=== PATIENT | male | born 1935 | race Caucasian/White ===

== ENCOUNTER 2018-05-01 14:37 | Inpatient (IN) | payer MEDICARE, BC ==
[~2018-05-01] VITALS: Ht 175.3 cm; Wt 63.2 kg
[2018-05-01] MEDS: PLEASE ENTER ALLERGIES MC SCH ×2 (15:00→23:00)
[2018-05-01] MEDS ORDERED: SODIUM CHLORIDE FLUSH 10ML SYR IVF ONE (15:00)
[2018-05-01 15:20] LABS: MEAN CORPUSCULAR HEMOGLOBIN 38.4 pg (27.5-34.5); MEAN CORPUSCULAR HGB CONC 32.2 g/dL (33.2-36.2); MEAN CORPUSCULAR VOLUME 119.4 fL (81-97); MEAN PLATELET VOLUME 7.8 fL (7.4-10.4); PLATELET COUNT 520 x10^3/uL (130-400); RED BLOOD COUNT 2.42 x10^6/uL (4.38-5.82); RED CELL DISTRIBUTION WIDTH 16.2 % (9.4-14.8)
[2018-05-01 15:28] LABS: ALANINE AMINOTRANSFERASE 27 U/L (12-78); ALBUMIN 3.6 g/dL (3.4-5.0); ANION GAP 9 mmol/L (5-15); CALCIUM 9.1 mg/dL (8.5-10.1); CHLORIDE 111 mmol/L (98-107); CREATININE 2.02 mg/dL (0.7-1.3)
[2018-05-01 15:50] LABS: INTERNATIONAL NORMALIZED RATIO 1.17 (0.93-1.1); PROTHROMBIN TIME 12.3 Seconds (9.6-11.5)
[2018-05-01 15:53] LABS: BASOPHILS % (AUTO) 0 % (0-1); EOSINOPHILS # (AUTO) 0.01 x10^3/uL (0-0.4); EOSINOPHILS % (AUTO) 0 % (1-7); LYMPHOCYTES # (AUTO) 0.83 x10^3/uL (1-3.4); LYMPHOCYTES % (AUTO) 10 % (22-44); MD MORPH REVIEW ONLY; MONOCYTES # (AUTO) 0.29 x10^3/uL (0.2-0.8); MONOCYTES % (AUTO) 3 % (2-9); NEUTROPHILS % (AUTO) 87 % (42-75)
[2018-05-01 15:54] LABS: <PLATELET ESTIMATE> INCREASED; <PLT MORPHOLOGY> NORMAL PLT MORPH; ANISOCYTOSIS 1+; POLYCHROMASIA 1+
[2018-05-01 15:55] LABS: ALKALINE PHOSPHATASE 115 U/L (45-117); BILIRUBIN,TOTAL 1.6 mg/dL (0.2-1.0); TOTAL PROTEIN 8.1 g/dL (6.4-8.2)
[2018-05-01] MEDS ORDERED: LABETALOL 5MG/ML, 20ML IVPush PRN (17:30)
[2018-05-01] MEDS ORDERED: POLYETHYLENE GLYCOL 17 GM PACKET PO PRN (17:30)
[2018-05-01] MEDS ORDERED: ACETAMINOPHEN 325 MG TABLET PO PRN (17:30)
[2018-05-01] MEDS ORDERED: DOCUSATE 100 MG CAPSULE PO PRN (17:30)
[2018-05-01] MEDS ORDERED: BISACODYL 10 MG SUPP PR PRN (17:30)
[2018-05-01] MEDS ORDERED: BACLOFEN 10 MG TABLET PO PRN (17:30)
[2018-05-01 17:47] LABS: FREE T4 (FREE THYROXINE) 1.27 ng/dL (0.76-1.46); TROPONIN I 0.252 ng/mL (0.000-0.045)
[2018-05-01 18:03] LABS: HEMOGLOBIN A1C 4.5 % (4.2-6.3)
[2018-05-01 20:04] VITALS: BP 148/73
[2018-05-01] MEDS: ATORVASTATIN 40 MG TABLET PO SCH (20:05)
[2018-05-01] MEDS: HEPARIN 5,000 UNITS/ML, 1ML SQ SCH (20:28)
[2018-05-01] MEDS: SODIUM CHLORIDE 0.9% 1,000 ML IV SCH (20:28)
[2018-05-01] MEDS ORDERED: FOLI-17 PO (20:59)
[2018-05-01 21:06] LABS: MICROSCOPIC AUTO
[2018-05-01 21:13] LABS: AMPHETAMINE SCREEN, URINE Negative (Negative); BARBITURATE SCREEN, URINE Negative (Negative); BENZODIAZEPINE SCREEN, URINE Negative (Negative); CANNABINOID SCREEN, URINE Negative (Negative); CHLORIDE,URINE RANDOM 156 mmol/L; COCAINE SCREEN, URINE Negative (Negative); METHADONE SCREEN, URINE Negative (Negative); OPIATE SCREEN, URINE Negative (Negative); POTASSIUM,URINE RANDOM 72 mmol/L; SODIUM,URINE RANDOM 127 mmol/L
[2018-05-01 21:14] LABS: CULTURE INDICATED? NO
[2018-05-02 00:47] VITALS: BP 128/67
[2018-05-02] MEDS ORDERED: HYDR500C PO (00:55)
[2018-05-02] MEDS ORDERED: ASPI-430 PO (00:55)
[2018-05-02] MEDS: SODIUM CHLORIDE 0.9% 1,000 ML IV SCH ×3 (04:11→22:04)
[2018-05-02] MEDS: HEPARIN 5,000 UNITS/ML, 1ML SQ SCH ×3 (04:11→19:31)
[2018-05-02 06:09] LABS: CHLORIDE 116 mmol/L (98-107)
[2018-05-02 06:11] LABS: MEAN CORPUSCULAR HEMOGLOBIN 39.3 pg (27.5-34.5); MEAN CORPUSCULAR HGB CONC 32.9 g/dL (33.2-36.2); MEAN CORPUSCULAR VOLUME 119.5 fL (81-97); MEAN PLATELET VOLUME 8.2 fL (7.4-10.4); PLATELET COUNT 386 x10^3/uL (130-400); RED BLOOD COUNT 2.18 x10^6/uL (4.38-5.82); RED CELL DISTRIBUTION WIDTH 16.6 % (9.4-14.8)
[2018-05-02 06:19] LABS: ALANINE AMINOTRANSFERASE 22 U/L (12-78); ALKALINE PHOSPHATASE 101 U/L (45-117); ANION GAP 9 mmol/L (5-15); BILIRUBIN,TOTAL 1.6 mg/dL (0.2-1.0); CALCIUM 8.5 mg/dL (8.5-10.1); CHOL/HDL RATIO 2.3; CHOLESTEROL, TOTAL 96 mg/dL (140-239); CREATININE 1.65 mg/dL (0.7-1.3); HDL CHOL % 44 % (26-37); HDL CHOLESTEROL (DIRECT) 42 mg/dL (40-60); LDL CHOLESTEROL,CALCULATED 40 mg/dL (54-169); TRIGLYCERIDES 70 mg/dL (50-200); VLDL CHOLESTEROL 14 mg/dL (0-25)
[2018-05-02 06:50] LABS: BASOPHILS # (AUTO) 1.56 x10^3/uL (0-0.1); BASOPHILS % (AUTO) 18 % (0-1); EOSINOPHILS # (AUTO) 0.06 x10^3/uL (0-0.4); EOSINOPHILS % (AUTO) 1 % (1-7); LYMPHOCYTES # (AUTO) 1.05 x10^3/uL (1-3.4); LYMPHOCYTES % (AUTO) 12 % (22-44); MD SCAN; MONOCYTES # (AUTO) 0.29 x10^3/uL (0.2-0.8); MONOCYTES % (AUTO) 3 % (2-9); NEUTROPHILS # (AUTO) 5.52 x10^3/uL (1.8-6.8); NEUTROPHILS % (AUTO) 65 % (42-75)
[2018-05-02 07:26] VITALS: BP 132/71
[2018-05-02] MEDS ORDERED: ASPIRIN 81 MG TABLET CHEW PO/NG SCH (09:00)
[2018-05-02] MEDS: THIAMINE 100MG TABLET PO SCH (09:00)
[2018-05-02 09:39] LABS: TROPONIN I 0.372 ng/mL (0.000-0.045)
[2018-05-02 12:37] VITALS: BP 129/53
--- NOTE | 2018-05-02 14:35 | NUR ---
TRANSPORTATION AGENT RECOMMEND: NPO with short term means of nutrition and hydration -Aggressive oral care -single ice chips ok Addendum: 05/02/18 at 1436 by JASON CONLEY Amended: Links added.
[2018-05-02] MEDS: ATORVASTATIN 40 MG TABLET PO SCH (19:31)
[2018-05-02 20:00] VITALS: BP 140/68
[2018-05-03 01:37] VITALS: BP 134/76
[2018-05-03] MEDS: HEPARIN 5,000 UNITS/ML, 1ML SQ SCH ×3 (03:53→20:08)
[2018-05-03] MEDS: SODIUM CHLORIDE 0.9% 1,000 ML IV SCH ×3 (05:47→22:20)
[2018-05-03 06:14] LABS: MEAN CORPUSCULAR HGB CONC 33.3 g/dL (33.2-36.2); MEAN CORPUSCULAR VOLUME 120.2 fL (81-97); MEAN PLATELET VOLUME 8.6 fL (7.4-10.4); PLATELET COUNT 367 x10^3/uL (130-400); RED BLOOD COUNT 2.15 x10^6/uL (4.38-5.82); RED CELL DISTRIBUTION WIDTH 16.3 % (9.4-14.8)
[2018-05-03 06:18] LABS: ALANINE AMINOTRANSFERASE 22 U/L (12-78); ANION GAP 9 mmol/L (5-15); CALCIUM 8.3 mg/dL (8.5-10.1); CHLORIDE 119 mmol/L (98-107); CREATININE 1.55 mg/dL (0.7-1.3)
[2018-05-03 06:20] LABS: ALKALINE PHOSPHATASE 100 U/L (45-117); BILIRUBIN,TOTAL 1.8 mg/dL (0.2-1.0); TOTAL PROTEIN 7.4 g/dL (6.4-8.2)
[2018-05-03 06:45] LABS: BASOPHILS # (AUTO) 0.01 x10^3/uL (0-0.1); BASOPHILS % (AUTO) 0 % (0-1); EOSINOPHILS # (AUTO) 0.01 x10^3/uL (0-0.4); EOSINOPHILS % (AUTO) 0 % (1-7); LYMPHOCYTES # (AUTO) 0.98 x10^3/uL (1-3.4); LYMPHOCYTES % (AUTO) 12 % (22-44); MD SCAN; MONOCYTES # (AUTO) 0.25 x10^3/uL (0.2-0.8); MONOCYTES % (AUTO) 3 % (2-9); NEUTROPHILS # (AUTO) 6.77 x10^3/uL (1.8-6.8); NEUTROPHILS % (AUTO) 84 % (42-75)
[2018-05-03 07:55] VITALS: BP 138/79
[2018-05-03] MEDS: THIAMINE 100MG TABLET PO SCH (09:00)
[2018-05-03] MEDS: ASPIRIN 300 MG SUPP PR SCH (09:17)
--- NOTE | 2018-05-03 09:37 | NUR ---
TF Recommendations If Needed: Jevity 1.2 full goal 60 ml/hr
[2018-05-03 13:17] VITALS: BP 139/83
[2018-05-03 17:15] VITALS: BP 144/66
[2018-05-03 18:30] VITALS: BP 158/76
[2018-05-03 18:40] LABS: TROPONIN I 0.174 ng/mL (0.000-0.045)
[2018-05-03] MEDS: ATORVASTATIN 40 MG TABLET PO SCH (20:03)
[2018-05-04 01:55] VITALS: BP 158/76
[2018-05-04] MEDS: HEPARIN 5,000 UNITS/ML, 1ML SQ SCH ×3 (05:11→21:09)
[2018-05-04] MEDS: SODIUM CHLORIDE 0.9% 1,000 ML IV SCH (05:11)
[2018-05-04 06:07] LABS: MEAN CORPUSCULAR HGB CONC 32.7 g/dL (33.2-36.2); MEAN CORPUSCULAR VOLUME 119.5 fL (81-97); MEAN PLATELET VOLUME 8.2 fL (7.4-10.4); PLATELET COUNT 376 x10^3/uL (130-400); RED BLOOD COUNT 2.18 x10^6/uL (4.38-5.82); RED CELL DISTRIBUTION WIDTH 16.6 % (9.4-14.8)
[2018-05-04 06:14] LABS: ALANINE AMINOTRANSFERASE 26 U/L (12-78); ALBUMIN 2.8 g/dL (3.4-5.0); ANION GAP 8 mmol/L (5-15); BILIRUBIN, DIRECT 0.5 mg/dL (0.1-0.2); CALCIUM 7.8 mg/dL (8.5-10.1); CHLORIDE 122 mmol/L (98-107)
[2018-05-04 06:17] LABS: ALKALINE PHOSPHATASE 93 U/L (45-117); BILIRUBIN,INDIRECT 1.2 mg/dL (0.0-2.0); BILIRUBIN,TOTAL 1.7 mg/dL (0.2-1.0); CREATININE 1.48 mg/dL (0.7-1.3); TOTAL PROTEIN 7.3 g/dL (6.4-8.2)
[2018-05-04 06:46] LABS: BASOPHILS # (AUTO) 0.03 x10^3/uL (0-0.1); BASOPHILS % (AUTO) 0 % (0-1); EOSINOPHILS # (AUTO) 0.01 x10^3/uL (0-0.4); EOSINOPHILS % (AUTO) 0 % (1-7); LYMPHOCYTES # (AUTO) 0.85 x10^3/uL (1-3.4); LYMPHOCYTES % (AUTO) 10 % (22-44); MD SCAN; MONOCYTES # (AUTO) 0.33 x10^3/uL (0.2-0.8); MONOCYTES % (AUTO) 4 % (2-9); NEUTROPHILS # (AUTO) 7.14 x10^3/uL (1.8-6.8); NEUTROPHILS % (AUTO) 86 % (42-75)
[2018-05-04 07:19] VITALS: BP 155/70
[2018-05-04] MEDS: THIAMINE 100MG TABLET PO SCH (07:48)
[2018-05-04] MEDS: ASPIRIN 300 MG SUPP PR SCH (09:16)
[2018-05-04] MEDS ORDERED: D5%-0.45NACL+KCL 20MEQ 1,000 ML IV SCH (12:00)
--- NOTE | 2018-05-04 12:46 | NUR ---
REC: NPO with NGT except ice chips with supervision Addendum: 05/04/18 at 1246 by July CONLEY Amended: Links added.
[2018-05-04 13:27] VITALS: BP 152/68
[2018-05-04] MEDS ORDERED: PVN PER PHARMACY MC PRN (16:30)
[2018-05-04] MEDS ORDERED: DEXTROSE 10% 500 ML IV PRN (17:00)
[2018-05-04] MEDS ORDERED: FILTER, DISP 1.2 MICRON FOR TPN/PVN IV PRN (17:00)
[2018-05-04] MEDS ORDERED: DEXTROSE 50%, 50ML SYRINGE IVPush PRN (17:00)
[2018-05-04] MEDS ORDERED: AMINO ACID 10% 750 ML, DEXTROSE 70% 350 ML, FAT EMUL/SMOF TPN 200 ML, STERILE WATER 1,0... IV SCH (17:00)
[2018-05-04 20:11] VITALS: BP 146/70
[2018-05-04] MEDS: ATORVASTATIN 40 MG TABLET PO SCH (21:09)
[2018-05-05] MEDS: INSULIN REGULAR MEDIUM DOSE Q6H X 48HRS SQ-INSULIN SCH ×3 (00:30→14:05)
[2018-05-05 01:44] VITALS: BP 148/76
[2018-05-05] MEDS: HEPARIN 5,000 UNITS/ML, 1ML SQ SCH ×3 (04:33→20:33)
[2018-05-05 05:23] LABS: MEAN CORPUSCULAR HEMOGLOBIN 38.4 pg (27.5-34.5); MEAN CORPUSCULAR VOLUME 119.9 fL (81-97); MEAN PLATELET VOLUME 9.2 fL (7.4-10.4); PLATELET COUNT 368 x10^3/uL (130-400); RED BLOOD COUNT 2.19 x10^6/uL (4.38-5.82); RED CELL DISTRIBUTION WIDTH 16.9 % (9.4-14.8)
[2018-05-05 05:31] LABS: CHLORIDE 122 mmol/L (98-107)
[2018-05-05 05:41] LABS: ALANINE AMINOTRANSFERASE 24 U/L (12-78); ALBUMIN 2.7 g/dL (3.4-5.0); ALKALINE PHOSPHATASE 88 U/L (45-117); ANION GAP 6 mmol/L (5-15); BILIRUBIN,TOTAL 1.2 mg/dL (0.2-1.0); CALCIUM 8.1 mg/dL (8.5-10.1); CREATININE 1.45 mg/dL (0.7-1.3); PREALBUMIN 7.1 mg/dL (20.0-40.0); TOTAL PROTEIN 7.5 g/dL (6.4-8.2); TRIGLYCERIDES 92 mg/dL (50-200)
[2018-05-05 05:59] LABS: BASOPHILS # (AUTO) 0.02 x10^3/uL (0-0.1); BASOPHILS % (AUTO) 0 % (0-1); EOSINOPHILS # (AUTO) 0.06 x10^3/uL (0-0.4); EOSINOPHILS % (AUTO) 1 % (1-7); LYMPHOCYTES # (AUTO) 0.61 x10^3/uL (1-3.4); LYMPHOCYTES % (AUTO) 8 % (22-44); MD SCAN; MONOCYTES # (AUTO) 0.29 x10^3/uL (0.2-0.8); MONOCYTES % (AUTO) 4 % (2-9); NEUTROPHILS # (AUTO) 6.82 x10^3/uL (1.8-6.8); NEUTROPHILS % (AUTO) 88 % (42-75)
[2018-05-05] MEDS ORDERED: D5%-0.45% NACL 1,000 ML IV SCH (07:00)
[2018-05-05] MEDS: THIAMINE 100MG TABLET PO SCH (07:28)
[2018-05-05 08:28] VITALS: BP 145/78
[2018-05-05] MEDS: ASPIRIN 300 MG SUPP PR SCH (08:47)
[2018-05-05 14:49] VITALS: BP 153/77
[2018-05-05] MEDS ORDERED: [UNRECOGNIZED DRUG - OTHER] IV SCH (17:00)
[2018-05-05] MEDS ORDERED: FILTER, DISP 1.2 MICRON FOR TPN/PVN IV PRN (17:00)
[2018-05-05] MEDS ORDERED: DEXTROSE 70% IV SCH (17:00)
[2018-05-05] MEDS ORDERED: FAT EMUL IV SCH (17:00)
[2018-05-05] MEDS ORDERED: AMINO ACID 10% IV SCH (17:00)
[2018-05-05] MEDS ORDERED: SMOF TPN IV SCH (17:00)
[2018-05-05] MEDS ORDERED: DEXTROSE 5% 1,000 ML IV SCH (18:00)
[2018-05-05] MEDS ORDERED: FUROSEMIDE 40 MG/4 ML IV ONE (18:00)
[2018-05-05 18:13] LABS: ALANINE AMINOTRANSFERASE 33 U/L (12-78); ALBUMIN 2.8 g/dL (3.4-5.0); ANION GAP 7 mmol/L (5-15); CALCIUM 8.3 mg/dL (8.5-10.1); CHLORIDE 119 mmol/L (98-107); CREATININE 1.45 mg/dL (0.7-1.3)
[2018-05-05 18:17] LABS: MD YES; MEAN CORPUSCULAR HEMOGLOBIN 39.2 pg (27.5-34.5); MEAN CORPUSCULAR VOLUME 118.8 fL (81-97); PLATELET COUNT 407 x10^3/uL (130-400); RED BLOOD COUNT 2.22 x10^6/uL (4.38-5.82); RED CELL DISTRIBUTION WIDTH 16.6 % (9.4-14.8)
[2018-05-05 18:18] LABS: ALKALINE PHOSPHATASE 100 U/L (45-117); BILIRUBIN,TOTAL 1.4 mg/dL (0.2-1.0); TOTAL PROTEIN 7.9 g/dL (6.4-8.2); TROPONIN I 0.162 ng/mL (0.000-0.045)
[2018-05-05 18:39] LABS: LYMPHS% (MANUAL) 6 % (22-44); SEGS% (MANUAL) 94 % (42-75)
[2018-05-05 18:40] LABS: <PLATELET ESTIMATE> ADEQUATE; <PLT MORPHOLOGY> NORMAL PLT MORPH; ANISOCYTOSIS 1+
[2018-05-05] MEDS ORDERED: PHARMACOKINETIC MONITORING MC PRN (19:00)
[2018-05-05] MEDS ORDERED: PHARMACOKINETIC CONSULTATION MC ONE (19:00)
[2018-05-05] MEDS ORDERED: VANCOMYCIN PER PHARMACY MC PRN (19:00)
[2018-05-05] MEDS: VANCOMYCIN 1,200 MG in SODIUM CHLORIDE 0.9% 250 ML IV SCH (19:38)
[2018-05-05 20:27] VITALS: BP 154/81
[2018-05-05] MEDS: ATORVASTATIN 40 MG TABLET PO SCH (20:34)
[2018-05-05 21:15] LABS: ANION GAP 6 mmol/L (5-15); CHLORIDE 119 mmol/L (98-107); CREATININE 1.34 mg/dL (0.7-1.3)
[2018-05-05] MEDS: PIPERACILLIN/TAZO/PMX 3.375GM 50 ML IV SCH (22:14)
[2018-05-06 00:01] LABS: TROPONIN I 0.259 ng/mL (0.000-0.045)
[2018-05-06 00:54] VITALS: BP 133/74
[2018-05-06] MEDS: HEPARIN 5,000 UNITS/ML, 1ML SQ SCH ×3 (04:19→20:02)
[2018-05-06] MEDS: PIPERACILLIN/TAZO/PMX 3.375GM 50 ML IV SCH ×4 (04:19→22:31)
[2018-05-06 06:27] LABS: ALBUMIN 2.5 g/dL (3.4-5.0); ANION GAP 9 mmol/L (5-15); CALCIUM 8.4 mg/dL (8.5-10.1); CHLORIDE 116 mmol/L (98-107)
[2018-05-06 06:34] LABS: ALANINE AMINOTRANSFERASE 31 U/L (12-78); ALKALINE PHOSPHATASE 93 U/L (45-117); BILIRUBIN,TOTAL 1.5 mg/dL (0.2-1.0); TROPONIN I 0.208 ng/mL (0.000-0.045)
[2018-05-06 07:26] VITALS: BP 114/66
[2018-05-06] MEDS: THIAMINE 100MG TABLET PO SCH (07:41)
[2018-05-06] MEDS: ASPIRIN 300 MG SUPP PR SCH (07:41)
[2018-05-06] MEDS ORDERED: FUROSEMIDE 40 MG/4 ML IV ONE (08:00)
[2018-05-06 08:07] LABS: ANISOCYTOSIS 1+; BASOPHILS # (AUTO) 0.04 x10^3/uL (0-0.1); BASOPHILS % (AUTO) 1 % (0-1); EOSINOPHILS # (AUTO) 0.06 x10^3/uL (0-0.4); EOSINOPHILS % (AUTO) 1 % (1-7); LYMPHOCYTES # (AUTO) 0.88 x10^3/uL (1-3.4); LYMPHOCYTES % (AUTO) 13 % (22-44); MD MORPH REVIEW ONLY; MEAN CORPUSCULAR HEMOGLOBIN 37.6 pg (27.5-34.5); MEAN CORPUSCULAR HGB CONC 31.5 g/dL (33.2-36.2); MEAN CORPUSCULAR VOLUME 119.5 fL (81-97); MEAN PLATELET VOLUME 10.2 fL (7.4-10.4); MONOCYTES % (AUTO) 3 % (2-9); NEUTROPHILS # (AUTO) 5.83 x10^3/uL (1.8-6.8); NEUTROPHILS % (AUTO) 83 % (42-75); PLATELET COUNT 364 x10^3/uL (130-400); RED BLOOD COUNT 2.17 x10^6/uL (4.38-5.82); RED CELL DISTRIBUTION WIDTH 17.1 % (9.4-14.8)
[2018-05-06 08:08] LABS: <PLATELET ESTIMATE> ADEQUATE; LARGE PLATELETS 1+; OVALOCYTES 1+; POLYCHROMASIA 1+
[2018-05-06] MEDS ORDERED: PVN PER PHARMACY MC PRN (12:00)
[2018-05-06 12:36] VITALS: BP 117/61
[2018-05-06] MEDS ORDERED: DEXTROSE 10% 500 ML IV PRN (14:00)
[2018-05-06] MEDS ORDERED: DEXTROSE 5% 1,000 ML IV SCH (14:00)
[2018-05-06] MEDS: FILTER, DISP 1.2 MICRON FOR TPN/PVN IV PRN (16:53)
[2018-05-06] MEDS ORDERED: [UNRECOGNIZED DRUG - OTHER] IV SCH (17:00)
[2018-05-06] MEDS ORDERED: AMINO ACID 10% IV SCH (17:00)
[2018-05-06] MEDS ORDERED: DEXTROSE 70% IV SCH (17:00)
[2018-05-06] MEDS ORDERED: SMOF TPN IV SCH (17:00)
[2018-05-06] MEDS ORDERED: FAT EMUL IV SCH (17:00)
[2018-05-06 18:28] VITALS: BP 123/61
[2018-05-06] MEDS: ATORVASTATIN 40 MG TABLET PO SCH (19:38)
[2018-05-06] MEDS: INSULIN REGULAR MEDIUM DOSE Q6H X 48HRS SQ-INSULIN SCH (20:54)
[2018-05-07 01:37] VITALS: BP 125/73
[2018-05-07] MEDS: INSULIN REGULAR MEDIUM DOSE Q6H X 48HRS SQ-INSULIN SCH ×3 (03:00→15:00)
[2018-05-07] MEDS: HEPARIN 5,000 UNITS/ML, 1ML SQ SCH ×2 (04:43→11:16)
[2018-05-07] MEDS: PIPERACILLIN/TAZO/PMX 3.375GM 50 ML IV SCH ×3 (04:44→17:10)
[2018-05-07 06:10] LABS: CHLORIDE 108 mmol/L (98-107)
[2018-05-07 06:18] LABS: ALANINE AMINOTRANSFERASE 37 U/L (12-78); ALBUMIN 2.3 g/dL (3.4-5.0); ALKALINE PHOSPHATASE 98 U/L (45-117); ANION GAP 8 mmol/L (5-15); BILIRUBIN,TOTAL 1.4 mg/dL (0.2-1.0); CALCIUM 7.9 mg/dL (8.5-10.1); CREATININE 1.65 mg/dL (0.7-1.3); TOTAL PROTEIN 6.8 g/dL (6.4-8.2)
[2018-05-07 06:20] LABS: BASOPHILS # (AUTO) 0.03 x10^3/uL (0-0.1); BASOPHILS % (AUTO) 0 % (0-1); EOSINOPHILS # (AUTO) 0.17 x10^3/uL (0-0.4); EOSINOPHILS % (AUTO) 2 % (1-7); LYMPHOCYTES # (AUTO) 0.87 x10^3/uL (1-3.4); LYMPHOCYTES % (AUTO) 12 % (22-44); MD NO; MEAN CORPUSCULAR HEMOGLOBIN 38.4 pg (27.5-34.5); MEAN CORPUSCULAR HGB CONC 32.9 g/dL (33.2-36.2); MEAN CORPUSCULAR VOLUME 116.6 fL (81-97); MEAN PLATELET VOLUME 9.9 fL (7.4-10.4); MONOCYTES % (AUTO) 3 % (2-9); NEUTROPHILS # (AUTO) 5.88 x10^3/uL (1.8-6.8); NEUTROPHILS % (AUTO) 82 % (42-75); PLATELET COUNT 368 x10^3/uL (130-400); RED BLOOD COUNT 2.11 x10^6/uL (4.38-5.82); RED CELL DISTRIBUTION WIDTH 15.6 % (9.4-14.8)
[2018-05-07 07:29] VITALS: BP 126/66
[2018-05-07] MEDS: THIAMINE 100MG TABLET PO SCH (08:15)
[2018-05-07] MEDS: VANCOMYCIN 1,200 MG in SODIUM CHLORIDE 0.9% 250 ML IV SCH (08:15)
[2018-05-07] MEDS: ASPIRIN 300 MG SUPP PR SCH (08:15)
[2018-05-07] MEDS ORDERED: INSULIN REGULAR MEDIUM DOSE QDAY SQ-INSULIN SCH (09:00)
[2018-05-07 12:21] VITALS: BP 119/72
[2018-05-07] MEDS ORDERED: [UNRECOGNIZED DRUG - OTHER] MC (15:26)
[2018-05-07] MEDS ORDERED: AMPI3VIA IV (15:26)
[2018-05-07] MEDS ORDERED: ASPI300S PR (15:26)
[2018-05-07] MEDS ORDERED: METR500P29 IV (15:26)
[2018-05-07] MEDS ORDERED: INSU100V5 SQ-INSULIN (15:26)
[2018-05-07] MEDS ORDERED: LIDOCAINE 1%, 20ML ONE (15:56)
[2018-05-07] MEDS ORDERED: AMINO ACID 10% 750 ML, DEXTROSE 70% 350 ML, FAT EMUL/SMOF TPN 200 ML, STERILE WATER 1,0... IV SCH (17:00)
[2018-05-07] MEDS: FILTER, DISP 1.2 MICRON FOR TPN/PVN IV PRN (17:10)
[2018-05-08] MEDS ORDERED: INSULIN REGULAR MEDIUM DOSE QDAY SQ-INSULIN SCH (09:00)
== END 2018-05-07 22:53 | DRG 40 ==
LOC: ED 15:42 → EDIP 16:30 → 4EST 18:13
PROVIDERS: ADMIT Internal Medicine; ATTEND Internal Medicine
PROC: 02HV33Z Insertion of Infusion Device into Superior Vena Cava, Percutaneous Approach (ICD-10-PCS; principal; 2018-05-07)
PROC: B548ZZA Ultrasonography of Superior Vena Cava, Guidance (ICD-10-PCS; 2018-05-07)
PROC: B5181ZA Fluoroscopy of Superior Vena Cava using Low Osmolar Contrast, Guidance (ICD-10-PCS; 2018-05-07)
PROC: 0JH632Z Insertion of Monitoring Device into Chest Subcutaneous Tissue and Fascia, Percutaneous Approach (ICD-10-PCS; 2018-05-07)
DX: I63.9 Cerebral infarction, unspecified (principal); J96.01 Acute respiratory failure with hypoxia; J69.0 Pneumonitis due to inhalation of food and vomit; N17.9 Acute kidney failure, unspecified; G81.94 Hemiplegia, unspecified affecting left nondominant side; I27.20 Pulmonary hypertension, unspecified; D64.9 Anemia, unspecified; D47.3 Essential (hemorrhagic) thrombocythemia; F10.10 Alcohol abuse, uncomplicated; R47.1 Dysarthria and anarthria; I07.1 Rheumatic tricuspid insufficiency; R13.10 Dysphagia, unspecified; R62.7 Adult failure to thrive; Z68.20 Body mass index [BMI] 20.0-20.9, adult; Z79.02 Long term (current) use of antithrombotics/antiplatelets; Z79.82 Long term (current) use of aspirin
CPT/HCPCS: 36415; 36573; 36600; 70450; 70551; 71045; 74230; 76700; 80048; 80053; 80061; 80307; 81001; 82247; 82248; 82306; 82436; 82570; 82607; 82803; 82962; 83036; 83735; 83880; 83970; 84100; 84133; 84134; 84300; 84439; 84443; 84478; 84484; 85025; 85610; 87040; 93005; 93306; 93880; 99285; G0378; J0610; J1644; J1815; J1940; J2543; J3370; J3475; J3490; J7070; C1751; J1720; J3420; J3480; J7030; J7050